=== PATIENT | female | born 1960 | race African-American/Black ===

== ENCOUNTER 2018-04-19 11:57 | Inpatient (IN) | payer OTHER ==
--- NOTE | 2018-04-19 12:54 | PDOC ---
History of Present Illness - General Chief Complaint: Blood Pressure Problem Stated Complaint: NUMBNESS LEFT SIDE FACE SINCE 04/18/18 Time Seen by Provider: 04/19/18 12:53 - History of Present Illness Initial Comments: 04/19/18 13:34 The patient is a 57 year old female, with a significant past medical history of HTN (not on medication), who presents to the emergency department with 2 days of constant left facial and intermittent L arm numbness. She states reports her blood pressure 2 days ago was 202/136 when she was visiting her family in [place]. She reportedly drove to [place] and back, but admits to taking stops and walking around on route. She reports the facial numbness is more prominent to her left forehead with slightly less decrease in sensation to her left cheek and jaw. She reports her left arm has pins and needles from her wrist to her anterior elbow. She denies any tingling now and reports the tingling comes and goes. Secondarily, she states she felt a momentary pressure-like headache at onset yesterday which has resolved at this time. The patient denies chest pain, shortness of breath, and dizziness. She denies visual, auditory, or speech changes. The patient denies fever, chills, nausea, vomit, diarrhea and constipation. The patient denies dysuria, frequency, urgency and hematuria. Allergies: NKDA Past surgical history: tubal ligation Social history: occasional ETOH. prior tobacco smoker (26 yrs ago) Family Hx: CAD (mother), CHF (grandmother) PCP - Dr. Mabry? ([place]) Past History - Past Medical History Allergies/Adverse Reactions: Allergies Allergy/AdvReac Type Severity Reaction Status Date / Time Penicillins Allergy Verified 04/19/18 12:04 Home Medications: Ambulatory Orders NK [No Known Home Medication] 04/19/18 Cardiac Disorders: Yes (10% blockage) CVA: No COPD: No HTN: Yes - Surgical History Abdominal Surgery: Yes (tubal ligation) - Suicide/Smoking/Psychosocial Hx Smoking History: Never smoked Information on smoking cessation initiated: No Hx Alcohol Use: No Drug/Substance Use Hx: No Substance Use Type: None Review of Systems - Review of Systems Comments:: 04/19/18 13:30 GENERAL/CONSTITUTIONAL: No fever or chills. No weakness. HEAD, EYES, EARS, NOSE AND THROAT: No change in vision. No ear pain or discharge. No sore throat. GASTROINTESTINAL: No nausea, vomiting, diarrhea or constipation. GENITOURINARY: No dysuria, frequency, or change in urination. CARDIOVASCULAR: No chest pain or shortness of breath. RESPIRATORY: No cough, wheezing, or hemoptysis. MUSCULOSKELETAL: No joint or muscle swelling or pain. No neck or back pain. SKIN: No rash NEUROLOGIC: +headache, +L facial and LUE weakness, no vertigo, loss of consciousness, ENDOCRINE: No increased thirst. No abnormal weight change. HEMATOLOGIC/LYMPHATIC: No anemia, easy bleeding, or history of blood clots. ALLERGIC/IMMUNOLOGIC: No hives or skin allergy. *Physical Exam - Vital Signs Last Vital Signs Temp Pulse Resp BP Pulse Ox 98.2 F 74 19 195/105 99 04/19/18 12:01 04/19/18 12:01 04/19/18 12:01 04/19/18 12:01 04/19/18 12:01 - Physical Exam Comments: 04/19/18 13:33 GENERAL: Awake, alert, and fully oriented, in no acute distress HEAD: No signs of trauma EYES: PERRLA, EOMI, sclera anicteric, conjunctiva clear ENT: Auricles normal inspection, hearing grossly normal, nares patent, oropharynx clear without exudates. Moist mucosa NECK: Normal ROM, supple, no lymphadenopathy, JVD, or masses LUNGS: Breath sounds equal, clear to auscultation bilaterally. No wheezes, and no crackles HEART: Regular rate and rhythm, normal S1 and S2, no murmurs, rubs or gallops ABDOMEN: Soft, nontender, normoactive bowel sounds. No guarding, no rebound. No masses EXTREMITIES: Normal range of motion, no edema. No clubbing or cyanosis. No cords, erythema, or tenderness NEUROLOGICAL: Normal speech, decreased L facial sensation to light touch, negative pronator drift, 5/5 strength in all 4 extremities, normal sensation to light touch in all 4 extremities, normal cerebellar exam, normal gait, normal reflexes and tone SKIN: Warm, Dry, normal turgor, no rashes or lesions noted. Heart Score/ECG Review #1 04/19/18 13:24 Twelve-lead EKG was performed and reviewed by me. Normal sinus rhythm, rate 64. Normal axis and intervals. No ST elevations. T wave inversions in leads 1, 2, 3 , aVF, V5, V6. T-wave flattening in aVL. No previous EKG to compare. ED Treatment Course - LABORATORY CBC & Chemistry Diagram: 04/19/18 14:14 04/19/18 14:14 Medical Decision Making - Medical Decision Making 04/19/18 13:25 57-year-old female with a history of hypertension, but not on any medications presents emergency Department with left facial numbness since last night as well as left upper extremity numbness intermittently since yesterday. Patient's blood pressures elevated in the ED to 195/105. On exam has decreased sensation over V1 and V2 distributions of the trigeminal nerve. Remainder of neuro exam is intact. Differential includes CVA versus TIA versus hypertensive emergency. Plan -labs -CTH -neuro c/s -will allow permissive HTN in case of CVA -admit 04/19/18 15:27 Labs neg CTH neg MRI ordered, neuro c/s awaiting call back Pt updated 04/19/18 16:[address] Shore who recommends hydralzine to get BP down by 20- 25% Case discussed with Dr. Cody, pt accepted for admission Case discussed in detail with admitting physician including history, physical exam and ancillary studies. Admitting physician has assumed care for the patient, will follow all pending diagnostics and will complete the evaluation and treatment. *DC/Admit/Observation/Transfer Diagnosis at time of Disposition: Left facial numbness, Hypertension - Discharge Dispostion Condition at time of disposition: Stable Decision to Admit order: Yes - Referrals - Patient Instructions - Post Discharge Activity - Attestations Physician Attestion: 04/19/18 15:29 I, Dr. Adriano Salazar MD, attest that this document has been prepared under my direction and personally reviewed by me in its entirety. I further attest, that it accurately reflects all work, treatment, procedures and medical decision -making performed by me.
[2018-04-19] MEDS ORDERED: SODIUM CHLORIDE 1,000 ML IV SCH (13:30)
[2018-04-19 14:19] LABS: BASO % 0.9 % (0-2.0); EOS % 0.6 % (0-4.5); HEMATOCRIT 37.2 % (32.4-45.2); HEMOGLOBIN 12.4 GM/dL (10.7-15.3); MCH 26.4 pg (25.7-33.7); MCHC 33.4 g/dl (32.0-36.0); MEAN CELL VOLUME 78.9 fl (80-96); MEAN PLT VOLUME 7.8 fl (7.5-11.1); MONO % 6.8 % (3.8-10.2); NEUT % 37.7 % (42.8-82.8); PLATELET COUNT 197 K/MM3 (134-434); RBC 4.72 M/mm3 (3.60-5.2); WHITE BLOOD COUNT 9.6 K/mm3 (4.0-10.0)
[2018-04-19 14:33] LABS: INR 1.12 (0.83-1.09); PROTHROMBIN TIME (PATIENT) 12.7 SEC (9.7-13.0)
[2018-04-19 14:51] LABS: ALBUMIN 3.5 g/dl (3.4-5.0); ANION GAP 5 MMOL/L (8-16); BILIRUBIN,TOTAL 0.5 mg/dL (0.2-1.0); BLOOD UREA NITROGEN 12 mg/dL (7-18); CALCIUM 8.8 mg/dL (8.5-10.1); CHLORIDE 107 mmol/L (98-107); CHOLESTEROL 176 mg/dL (50-200); CO2 30 mmol/L (21-32); CREATININE 0.7 mg/dL (0.55-1.02); GLUCOSE,RANDOM 100 mg/dL (74-106); POTASSIUM 3.8 mmol/L (3.5-5.1); SGOT/AST 23 U/L (15-37); SGPT/ALT 35 U/L (12-78); SODIUM 142 mmol/L (136-145); TOT PROT 7.8 g/dl (6.4-8.2); TRIGLYCERIDES 283 mg/dL (35-160)
[2018-04-19 14:52] LABS: ALK PHOS 52 U/L (45-117); HDL CHOLESTEROL 39 mg/dL (40-60)
[2018-04-19 16:12] LABS: URINE APPEARANCE SLCLOUDY; URINE BILIRUBIN NEGATIVE (<2.0 mg/dL); URINE COLOR LTYELLOW; URINE GLUCOSE (UA) NEGATIVE (NEGATIVE); URINE KETONE NEGATIVE (NEGATIVE); URINE LEUK ESTERASE NEGATIVE (NEGATIVE); URINE NITRITE NEGATIVE (NEGATIVE); URINE PROTEIN NEGATIVE (NEGATIVE); URINE UROBILINOGEN NEGATIVE mg/dL (0.2-1.0)
[2018-04-19] MEDS: hydrALAZINE HCL 10 MG TABLET PO ONE ×2 (16:46→17:05)
[2018-04-19] MEDS ORDERED: hydrALAZINE HCL 25 MG TABLET (FP) ONE (16:54)
--- NOTE | 2018-04-19 22:38 | HP ---
Admitting History and Physical - Primary Care Physician PCP: Meggan Cody - Admission History of Present Illness: 57-year-old female with a history of hypertension, but not on any medications presents emergency Department with left facial numbness since last night as well as left upper extremity numbness intermittently since yesterday. Patient's blood pressures elevated in the ED to 195/105. On exam has decreased sensation over V1 and V2 distributions of the trigeminal nerve. Remainder of neuro exam is intact. Differential includes CVA versus TIA versus hypertensive emergency. Plan - Past Medical History Cardiovascular: Yes: HTN - Smoking History Smoking history: Never smoked - Alcohol/Substance Use Hx Alcohol Use: No Home Medications - Allergies Allergies/Adverse Reactions: Allergies Allergy/AdvReac Type Severity Reaction Status Date / Time Penicillins Allergy Verified 04/19/18 12:04 - Home Medications Home Medications: Ambulatory Orders Naproxen Sodium [Aleve] 220 mg PO PRN MDD 220 mg 04/20/18 Physical Examination Vital Signs: Vital Signs Temperature 98.4 F 04/19/18 22:08 Pulse Rate 64 04/19/18 22:08 Respiratory Rate 17 04/19/18 22:08 Blood Pressure 180/107 04/19/18 22:08 O2 Sat by Pulse Oximetry (%) 98 04/19/18 22:08 Constitutional: Yes: No Distress HENT: Yes: Atraumatic Neck: Yes: Supple Cardiovascular: Yes: Regular Rate and Rhythm Respiratory: Yes: CTA Bilaterally Gastrointestinal: Yes: Normal Bowel Sounds Extremities: Yes: WNL Neurological: Yes: Alert, Oriented Labs: CBC, BMP 04/19/18 14:14 04/19/18 14:14 Problem List - Problems (1) Hypertension Assessment/Plan: will start [place] bp meds cardiology consul tele monitoring follow up troponins Code(s): I10 - ESSENTIAL (PRIMARY) HYPERTENSION (2) Left facial numbness Assessment/Plan: feeling better could be related to elevated bp will get neuro involved Code(s): R20.0 - ANESTHESIA OF SKIN Assessment/Plan Laboratory Tests 04/19/18 04/19/18 04/19/18 14:02 14:14 14:14 WBC 9.6 RBC 4.72 Hgb 12.4 Hct 37.2 MCV 78.9 L MCH 26.4 MCHC 33.4 RDW 14.0 Plt Count 197 MPV 7.8 Absolute Neuts (auto) 3.6 Neutrophils % 37.7 L Lymphocytes % 54.0 H Monocytes % 6.8 Eosinophils % 0.6 Basophils % 0.9 Nucleated RBC % 0 PT with INR 12.70 INR 1.12 H Sodium Potassium Chloride Carbon Dioxide Anion Gap BUN Creatinine Creat Clearance w eGFR Random Glucose Calcium Total Bilirubin AST ALT Alkaline Phosphatase Creatine Kinase Troponin I Total Protein Albumin Triglycerides Cholesterol Total LDL Cholesterol HDL Cholesterol Urine Color Urine Appearance Urine pH Ur Specific [place] Urine Protein Urine Glucose (UA) Urine Ketones Urine Blood Urine Nitrite Urine Bilirubin Urine Urobilinogen Ur Leukocyte Esterase Blood Type A POSITIVE Antibody Screen Negative 04/19/18 04/19/18 14:14 15:31 WBC RBC Hgb Hct MCV MCH MCHC RDW Plt Count MPV Absolute Neuts (auto) Neutrophils % Lymphocytes % Monocytes % Eosinophils % Basophils % Nucleated RBC % PT with INR INR Sodium 142 Potassium 3.8 Chloride 107 Carbon Dioxide 30 Anion Gap 5 L BUN 12 Creatinine 0.7 Creat Clearance w eGFR > 60 Random Glucose 100 Calcium 8.8 Total Bilirubin 0.5 AST 23 ALT 35 Alkaline Phosphatase 52 Creatine Kinase 48 Troponin I < 0.02 Total Protein 7.8 Albumin 3.5 Triglycerides 283 H Cholesterol 176 Total LDL Cholesterol 110 H HDL Cholesterol 39 L Urine Color Ltyellow Urine Appearance Slcloudy Urine pH 5.0 Ur Specific [place] 1.010 Urine Protein Negative Urine Glucose (UA) Negative Urine Ketones Negative Urine Blood Negative Urine Nitrite Negative Urine Bilirubin Negative Urine Urobilinogen Negative Ur Leukocyte Esterase Negative Blood Type Antibody Screen Active Medications Generic Name Dose Route Start Last Admin Trade Name Freq PRN Reason Stop Dose Admin Sodium Chloride 1,000 mls @ 42 mls/hr 04/19/18 13:30 04/19/18 13:52 Normal Saline - IV 42 mls/hr ASDIR DOUGLAS Administration Active Medications Generic Name Dose Route Start Last Admin Trade Name Freq PRN Reason Stop Dose Admin Acetaminophen 650 mg 04/19/18 23:16 Tylenol - PO Q6H PRN FEVER Amlodipine Besylate 10 mg 04/19/18 23:30 04/20/18 09:30 Norvasc - PO 10 mg DAILY DOUGLAS Administration Zolpidem Tartrate 5 mg 04/19/18 23:16 Ambien - PO HS PRN INSOMNIA
[2018-04-19] MEDS ORDERED: ZOLPIDEM TARTRATE 5 MG TABLET PO PRN (23:16)
[2018-04-19] MEDS ORDERED: ACETAMINOPHEN 325 MG TABLET (FP) PO PRN (23:16)
[2018-04-19] MEDS: amLODIPine BESYLATE 10 MG TABLET (FP) PO SCH (23:30)
[2018-04-19] MEDS ORDERED: amLODIPine BESYLATE 5 MG TABLET (FP) ONE ×2 (23:31→23:42)
[2018-04-20 00:26] VITALS: BMI 41.3
[2018-04-20 06:22] LABS: BASO % 0.4 % (0-2.0); HEMATOCRIT 38.1 % (32.4-45.2); HEMOGLOBIN 12.6 GM/dL (10.7-15.3); LYMPH % 55.7 % (8-40); MCHC 33.1 g/dl (32.0-36.0); MEAN CELL VOLUME 78.4 fl (80-96); MEAN PLT VOLUME 7.8 fl (7.5-11.1); NEUT % 34.9 % (42.8-82.8); PLATELET COUNT 188 K/MM3 (134-434); RBC 4.85 M/mm3 (3.60-5.2); RDW 14.2 % (11.6-15.6); WHITE BLOOD COUNT 9.2 K/mm3 (4.0-10.0)
[2018-04-20 07:07] LABS: CHLORIDE 105 mmol/L (98-107); POTASSIUM 3.8 mmol/L (3.5-5.1); SODIUM 141 mmol/L (136-145)
[2018-04-20 07:14] LABS: ALBUMIN 3.4 g/dl (3.4-5.0); ALK PHOS 54 U/L (45-117); ANION GAP 6 MMOL/L (8-16); BILIRUBIN,TOTAL 0.6 mg/dL (0.2-1.0); BLOOD UREA NITROGEN 12 mg/dL (7-18); CALCIUM 8.7 mg/dL (8.5-10.1); CO2 30 mmol/L (21-32); CREATININE 0.8 mg/dL (0.55-1.02); GLUCOSE,RANDOM 102 mg/dL (74-106); SGOT/AST 23 U/L (15-37); SGPT/ALT 31 U/L (13-61); TOT PROT 7.7 g/dl (6.4-8.2)
--- NOTE | 2018-04-20 09:26 | CONSULT ---
Consult - text type - Consultation Consultation Note: Neurology History of Present Illness 57 year old female, with a significant past medical history of HTN (not on medication), who presents to the emergency department with 2 days of constant left facial and intermittent L arm numbness. She stated her blood pressure was recently elevated to 202/136 when she was visiting her family in [place]. She reportedly drove to [place] and back, but admited to taking stops and walking around on route. She reported the facial numbness was more prominent to her left forehead with slightly less decrease in sensation to her left cheek and jaw. She reports her left arm has pins and needles from her wrist to her anterior elbow. She completed CT head and did not show acute changes. MRI brain completed and reviewed and no acute changes noted. No symptoms this am and reports being at baseline. No deficits noted. Past History - Past Medical History Allergies/Adverse Reactions: Allergies Allergy/AdvReac Type Severity Reaction Status Date / Time Penicillins Allergy Verified 04/19/18 12:04 Home Medications: Ambulatory Orders NK [No Known Home Medication] 04/19/18 Cardiac Disorders: Yes (10% blockage) CVA: No COPD: No HTN: Yes - Surgical History Abdominal Surgery: Yes (tubal ligation) - Suicide/Smoking/Psychosocial Hx Smoking History: Never smoked Information on smoking cessation initiated: No Hx Alcohol Use: No Drug/Substance Use Hx: No Substance Use Type: None Review of Systems GENERAL/CONSTITUTIONAL: No fever or chills. No weakness. HEAD, EYES, EARS, NOSE AND THROAT: No change in vision. No ear pain or discharge. No sore throat. GASTROINTESTINAL: No nausea, vomiting, diarrhea or constipation. GENITOURINARY: No dysuria, frequency, or change in urination. CARDIOVASCULAR: No chest pain or shortness of breath. RESPIRATORY: No cough, wheezing, or hemoptysis. MUSCULOSKELETAL: No joint or muscle swelling or pain. No neck or back pain. SKIN: No rash NEUROLOGIC: +headache, +L facial and LUE weakness, no vertigo, loss of consciousness, ENDOCRINE: No increased thirst. No abnormal weight change. HEMATOLOGIC/LYMPHATIC: No anemia, easy bleeding, or history of blood clots. ALLERGIC/IMMUNOLOGIC: No hives or skin allergy. *Physical Exam Vital Signs Temperature 98.3 F 04/20/18 05:46 Pulse Rate 61 04/20/18 05:46 Respiratory Rate 20 04/20/18 05:46 Blood Pressure 142/96 04/20/18 05:46 O2 Sat by Pulse Oximetry (%) 98 04/20/18 00:10 04/19/18 13:33 GENERAL: Awake, alert, and fully oriented, in no acute distress HEAD: No signs of trauma EYES: PERRLA, EOMI, sclera anicteric, conjunctiva clear ENT: Auricles normal inspection, hearing grossly normal, nares patent, oropharynx clear without exudates. Moist mucosa NECK: Normal ROM, supple, no lymphadenopathy, JVD, or masses LUNGS: Breath sounds equal, clear to auscultation bilaterally. No wheezes, and no crackles HEART: Regular rate and rhythm, normal S1 and S2, no murmurs, rubs or gallops ABDOMEN: Soft, nontender, normoactive bowel sounds. No guarding, no rebound. No masses EXTREMITIES: Normal range of motion, no edema. No clubbing or cyanosis. No cords, erythema, or tenderness NEUROLOGICAL: Normal speech, CN normal, negative pronator drift, 5/5 strength in all 4 extremities, normal sensation to light touch in all 4 extremities, normal cerebellar exam, normal gait, normal reflexes and tone SKIN: Warm, Dry, normal turgor, no rashes or lesions noted. CBCD WBC 9.2 K/mm3 (4.0-10.0) 04/20/18 06:00 RBC 4.85 M/mm3 (3.60-5.2) 04/20/18 06:00 Hgb 12.6 GM/dL (10.7-15.3) 04/20/18 06:00 Hct 38.1 % (32.4-45.2) 04/20/18 06:00 MCV 78.4 fl (80-96) L 04/20/18 06:00 MCHC 33.1 g/dl (32.0-36.0) 04/20/18 06:00 RDW 14.2 % (11.6-15.6) 04/20/18 06:00 Plt Count 188 K/MM3 (134-434) 04/20/18 06:00 MPV 7.8 fl (7.5-11.1) 04/20/18 06:00 CMP Sodium 141 mmol/L (136-145) 04/20/18 06:00 Potassium 3.8 mmol/L (3.5-5.1) 04/20/18 06:00 Chloride 105 mmol/L (98-107) 04/20/18 06:00 Carbon Dioxide 30 mmol/L (21-32) 04/20/18 06:00 Anion Gap 6 MMOL/L (8-16) L 04/20/18 06:00 BUN 12 mg/dL (7-18) 04/20/18 06:00 Creatinine 0.8 mg/dL (0.55-1.02) 04/20/18 06:00 Creat Clearance w eGFR > 60 (>60) 04/20/18 06:00 Random Glucose 102 mg/dL (74-106) 04/20/18 06:00 Calcium 8.7 mg/dL (8.5-10.1) 04/20/18 06:00 Total Bilirubin 0.6 mg/dL (0.2-1.0) 04/20/18 06:00 AST 23 U/L (15-37) 04/20/18 06:00 ALT 31 U/L (13-61) 04/20/18 06:00 Alkaline Phosphatase 54 U/L (45-117) 04/20/18 06:00 Total Protein 7.7 g/dl (6.4-8.2) 04/20/18 06:00 Albumin 3.4 g/dl (3.4-5.0) 04/20/18 06:00 CARDIAC ENZYMES Creatine Kinase 48 IU/L (26-192) 04/19/18 14:14 Troponin I < 0.02 ng/ml (0.00-0.05) 04/19/18 14:14 CT head reviewed MRI brain reviewed Medical Decision Making 57 year old female, with a significant past medical history of HTN (not on medication), who presents to the emergency department with 2 days of constant left facial and intermittent L arm numbness. She stated her blood pressure was recently elevated to 202/136 when she was visiting her family in [place]. She reportedly drove to [place] and back, but admited to taking stops and walking around on route. She reported the facial numbness was more prominent to her left forehead with slightly less decrease in sensation to her left cheek and jaw. She reports her left arm has pins and needles from her wrist to her anterior elbow. She completed CT head and did not show acute changes. MRI brain completed and reviewed and no acute changes noted. No symptoms this am and reports being at baseline. No deficits noted. Blood pressure optmization recommended. LDL 110, would not require statin at this time. Weight reduction recommended for obesity, diet modification, increased exercise. Medication compliance and regular follow ups recommended with PCP.
[2018-04-20] MEDS: amLODIPine BESYLATE 10 MG TABLET (FP) PO SCH (09:30)
[2018-04-20 09:40] LABS: ANISOCYTOSIS 1+; MACROCYTOSIS 0; PLATELET ESTIMATE NORMAL
[2018-04-20] MEDS ORDERED: amLODIPine BESYLATE 10 MG TABLET (FP) PO SCH (10:00)
--- NOTE | 2018-04-20 14:39 | ECHO ---
Name: REJI, TREVOR Exam:Adult Echocardiogram Study Date: 04/20/2018 08:37 AM Age: 57 yrs Reason For Study: htn Height: 64 in Weight: 240 lb BSA: 2.1 m2 MMode/2D Measurements & Calculations IVSd: 1.2 cm Ao root diam: 3.2 cm LVIDd: 4.0 cm LA dimension: 4.0 cm LVIDs: 2.4 cm LVPWd: 1.4 cm LVPWs: 2.0 cm EDV(Teich): 71.1 ml ESV(Teich): 19.7 ml RV S Syed: 8.5 cm/sec Doppler Measurements & Calculations MV E max syed: 81.0 cm/sec MV A max syed: 77.1 cm/sec MV dec slope: 138.0 cm/sec2 MV E/A: 1.1 MV dec time: 0.21 sec Ao V2 max: 163.8 cm/sec LV V1 max P.4 mmHg Ao max P.8 mmHg LV V1 max: 116.4 cm/sec PA V2 max: 104.5 cm/sec Med Peak E' Syed: 6.9 cm/sec PA max P.4 mmHg Med E/e': 11.8 Lat Peak E' Syed: 10.7 cm/sec Lat E/e': 7.6 Procedure A complete two-dimensional transthoracic echocardiogram was performed (2D, M-mode, Doppler and color flow Doppler). Left Ventricle There is mild concentric left ventricular hypertrophy. The left ventricular ejection fraction is norm al. Ejection Fraction = 65-70%. Left Ventricular Filling pattern is normal for age. The left ventricular wall motion is normal. Right Ventricle The right ventricle is normal in size and function. Atria Normal left and right atrial size and function. Mitral Valve There is no mitral regurgitation noted. Tricuspid Valve No tricuspid regurgitation. There was insufficient TR detected to calculate RV systolic pressure. Aortic Valve No hemodynamically significant valvular aortic stenosis. No aortic regurgitation is present. Pulmonic Valve Trace pulmonic valvular regurgitation. Great Vessels The aortic root is normal size. Pericardium/Pleura There is no pericardial effusion. Interpretation Summary There is mild concentric left ventricular hypertrophy. The left ventricular ejection fraction is normal. The right ventricle is normal in size and function. Trace pulmonic valvular regurgitation. MD Rico Garcia 04/20/2018 02:39 PM
[2018-04-20 14:42] VITALS: PULSE 68
--- NOTE | 2018-04-20 15:41 | EKG ---
Test Reason : Blood Pressure : / mmHG Vent. Rate : 064 BPM Atrial Rate : 064 BPM P-R Int : 168 ms QRS Dur : 078 ms QT Int : 428 ms P-R-T Axes : 033 011 -13 degrees QTc Int : 441 ms NORMAL SINUS RHYTHM NONSPECIFIC T WAVE ABNORMALITY ABNORMAL ECG NO PREVIOUS ECGS AVAILABLE Confirmed by ISMAEL STEWARD, AMANDA ([id number]) on 04/20/2018 3:40:37 PM Referred By: Confirmed By:AMANDA GUEVARA MD
--- NOTE | 2018-04-20 16:53 | CON.CARD ---
Consult Consult Specialty:: Cardiology Referred by:: Dr. Sotelo Reason for Consultation:: Severe hypertension - History of Present Illness Chief Complaint: Severe hypertension with facial numbness History of Present Illness: 57-year-old obese woman with a PMHx of hypertension, but not on medications admitted 04/19/2018 with severe hypertension. The patient presented to emergency department 04/19/2018 with left facial numbness as well as left upper extremity numbness intermittently for one day. Her BP Patient's blood pressures elevated in the ED to 195/105. Her symptoms resolved after admission. CT-had and MRI 04/19/2018 were negative. ECG 04/19/2018 showed sinus with lateral T inversion. Echo 04/20/2018 revealed mild concentric LVH with normal systolic function. LVEF = 65-70%. She has been under stress due to family tragedies. But she has no symptoms of angina or CHF. Her exercise tolerance is very good. - History Source History Provided By: Patient Limitations to Obtaining History: No Limitations - Past Medical History ...LMP Comment: post menopausal ...: No - Alcohol/Substance Use Hx Alcohol Use: Yes (occasional glass of wine) - Smoking History Smoking history: Never smoked Have you smoked in the past 12 months: No Home Medications - Allergies Allergies/Adverse Reactions: Allergies Allergy/AdvReac Type Severity Reaction Status Date / Time Penicillins Allergy Verified 04/19/18 12:04 - Home Medications Home Medications: Ambulatory Orders Naproxen Sodium [Aleve] 220 mg PO PRN MDD 220 mg 04/20/18 Review of Systems - Review of Systems Constitutional: reports: No Symptoms Eyes: reports: No Symptoms HENT: reports: No Symptoms Neck: reports: No Symptoms Cardiovascular: reports: No Symptoms Respiratory: reports: No Symptoms Gastrointestinal: reports: No Symptoms Genitourinary: reports: No Symptoms Breasts: reports: No Symptoms Reported Musculoskeletal: reports: No Symptoms Integumentary: reports: No Symptoms Neurological: reports: No Symptoms Endocrine: reports: No Symptoms Hematology/Lymphatic: reports: No Symptoms Vital Signs: Vital Signs Temperature 98.4 F 04/20/18 14:00 Pulse Rate 68 04/20/18 14:00 Respiratory Rate 18 04/20/18 14:00 Blood Pressure 122/83 04/20/18 14:00 O2 Sat by Pulse Oximetry (%) 98 04/20/18 09:00 General: Well developed. Obese. No acute distress. Head: Normocephalic. Atraumatic, Eyes: PERRLA, EOMI. Sclerae anicteric. Conjunctivae clear. Neck: Supple. No JVD. No bruits. Heart: Normal S1, S2: Regularly regular rhythm and rate. No murmur. No gallop or rub. Lungs: Symmetrical air entry. Clear to auscultation. No crackle. No wheezing or rhonchi. Abdomen: Soft. Bowel sound positive. Non tender. No masses. Extremities: No edema. No clubbing or cyanosis. PD 2+, equal bilaterally. Neuro: Intact, no focal findings. AAO X3. - Other Data Labs, Other Data: CBC, BMP 04/20/18 06:00 04/20/18 06:00 INR, PTT INR 1.12 (0.83-1.09) H 04/19/18 14:14 Troponin, BNP 04/19/18 01:00 Troponin I < 0.02 Troponin, BNP 04/19/18 01:00 Troponin I < 0.02 Assessment/Plan 57-year-old obese woman with a PMHx of hypertension, but not on medications admitted 04/19/[address]-had and MRI 04/19/2018 were negative. ECG 04/19/2018 showed sinus with lateral T inversion. Echo 04/20/2018 revealed mild concentric LVH with normal systolic function. LVEF = 65-70%. Severe hypertension: BP is well controlled with amlodipine 10 mg daily. Her heart rate is low normal range without arrhythmia. Continue amlodipine 10 mg daily with low salt diet. Out-patient cardiac follow up with Dr. Anand. Please call us for reconsult as needed.
[2018-04-20 18:09] VITALS: BP 135/75; TEMP 98
--- NOTE | 2018-04-20 18:35 | DS ---
Physical Examination Vital Signs: Vital Signs Temperature 98.0 F 04/20/18 18:00 Pulse Rate 68 04/20/18 18:00 Respiratory Rate 18 04/20/18 18:00 Blood Pressure 135/75 04/20/18 18:00 O2 Sat by Pulse Oximetry (%) 98 04/20/18 09:00 Constitutional: Yes: No Distress HENT: Yes: Atraumatic Neck: Yes: Supple Cardiovascular: Yes: Regular Rate and Rhythm Respiratory: Yes: CTA Bilaterally Gastrointestinal: Yes: Normal Bowel Sounds Extremities: Yes: WNL Neurological: Yes: Alert, Oriented Labs: CBC, BMP 04/20/18 06:00 04/20/18 06:00 Discharge Summary Reason For Visit: LEFT FACIAL NUMBNESS, HYPERTENSION Current Active Problems Hypertension (Acute) Left facial numbness (Acute) Condition: Stable - Instructions Referrals: Reji Anand MD [Staff Physician] - - Home Medications Comprehensive Discharge Medication List: Ambulatory Orders Amlodipine Besylate [Norvasc -] 10 mg PO DAILY #30 tablet 04/20/18 Naproxen Sodium [Aleve] 220 mg PO PRN MDD 220 mg 04/20/18 dc home
== END 2018-04-20 20:07 | disposition home or self-care (01) | DRG 58 ==
LOC: JER 11:57 → JERBED 15:33 → J4S 04-20 00:13
PROVIDERS: ADMIT Internal Medicine; ATTEND Internal Medicine
DX: R20.0 Anesthesia of skin (principal); I10 Essential (primary) hypertension; E66.9 Obesity, unspecified; Z68.41 Body mass index [BMI] 40.0-44.9, adult
CPT/HCPCS: 36415; 70450-TC; 70551-TC; 80053; 81003; 82465; 82550; 83718; 83721; 84478; 84484; 85025; 85610; 86850; 86900; 86901; 93005; 93010; 93306-TC; 99285-25; J7030